=== PATIENT | female | born 1975 | race Caucasian/White ===

== ENCOUNTER 2025-03-30 06:26 | Day surgery (SDC) | payer BC ==
[~2025-03-30 06:26] MED LIST: Sodium Chloride 0.9% 10 ML Syringe FLUSH PRN; Sodium Chloride 0.9% 2.5 ML Syringe FLUSH PRN; ceFAZolin 2 GM in Water For Injection, Sterile 20 ML IVPUSH ONE
[2025-03-30] MEDS: Lactated Ringers 1,000 ML IV SCH (07:07)
[2025-03-30] MEDS ORDERED: Ondansetron 4 MG/2 ML SDV IVPUSH PRN (07:31)
[2025-03-30] MEDS ORDERED: fentaNYL 50 MCG/ML SDV IVPUSH PRN (07:31)
[2025-03-30] MEDS ORDERED: Naloxone 0.4 MG/ML SDV IVPUSH PRN (07:31)
[2025-03-30] MEDS ORDERED: Albuterol 0.083% 2.5 MG/3 ML Neb Soln NEB PRN (07:31)
[2025-03-30] MEDS ORDERED: fentaNYL 100 MCG/2 ML SDV ONE (07:33)
[2025-03-30] MEDS ORDERED: Propofol 200 MG/20 ML SDV ONE (07:33)
[2025-03-30] MEDS ORDERED: Dexamethasone 4 MG/ML 5 ML MDV ONE (07:33)
[2025-03-30] MEDS ORDERED: Midazolam 1 MG/ML 2 ML SDV ONE (07:35)
[2025-03-30] MEDS ORDERED: ePHEDrine 50 MG/ML SDV ONE (08:14)
== END 2025-03-30 09:50 | disposition home or self-care (01) ==
LOC: MW.SDS 06:26
PROVIDERS: ATTEND Surgery
DX: C50.911 Malignant neoplasm of unspecified site of right female breast (principal); E66.9 Obesity, unspecified; E11.9 Type 2 diabetes mellitus without complications; F17.210 Nicotine dependence, cigarettes, uncomplicated; Z68.41 Body mass index [BMI] 40.0-44.9, adult; Z79.899 Other long term (current) drug therapy
CPT/HCPCS: 36561; 71045; 76000; 81025; C1788; J0665; J0690; J1100; J1642; J2003; J2250; J2704; J3010; J7120; 00532; J3490